=== PATIENT | female | born 1965 | race Caucasian/White ===

== ENCOUNTER 2021-01-04 10:12 | Emergency (ER) | payer BC ==
[~2021-01-04] VITALS: Ht 154.9 cm; Wt 80.9 kg
[2021-01-04 11:08] LABS: BASOPHILS # (AUTO) 0.1 X10'3 (0-0.2); BASOPHILS % (AUTO) 0.9 % (0-1); EOSINOPHILS # (AUTO) 0.2 X10'3 (0-0.9); EOSINOPHILS % (AUTO) 2.3 % (0-6); HEMATOCRIT 43.3 % (35.0-45.0); HEMOGLOBIN 14.3 g/dl (12.0-16.0); LYMPHOCYTES # (AUTO) 1.9 X10'3 (1.1-4.8); LYMPHOCYTES % (AUTO) 27.6 % (21-51); MEAN CORPUSCULAR HEMOGLOBIN 29.8 PG (27.0-31.0); MEAN CORPUSCULAR VOLUME 90.1 FL (78-98); MEAN PLATELET VOLUME 7.8 FL (7.4-10.4); MONOCYTES # (AUTO) 0.4 X10'3 (0-0.9); MONOCYTES % (AUTO) 5.7 % (2-12); NEUTROPHILS # (AUTO) 4.3 X10'3 (1.8-7.7); NEUTROPHILS % (AUTO) 63.5 % (42-75); PLATELET COUNT 309 X10'3 (140-440); RED CELL DISTRIBUTION WIDTH 13.8 % (11.5-14.5); WHITE BLOOD COUNT 6.7 X10'3 (4.5-11.0)
[2021-01-04 11:43] LABS: ALANINE AMINOTRANSFERASE 47 U/L (12-78); ALBUMIN 4.1 G/DL (3.4-5.0); ALBUMIN/GLOBULIN RATIO 1.1 (1.1-1.5); ALKALINE PHOSPHATASE 84 IU/L (46-116); ANION GAP 12 (8-16); ASPARTATE AMINO TRANSFERASE 23 U/L (10-37); BILIRUBIN,TOTAL 0.5 MG/DL (0.1-1.0); BLOOD UREA NITROGEN 16 MG/DL (7-18); BUN/CREATININE RATIO 20.8 (6.6-38.0); CALCIUM 9.3 MG/DL (8.5-10.1); CHLORIDE 105 MMOL/L (99-107); CREATININE 0.77 MG/DL (0.40-0.90); GLUCOSE 102 MG/DL (70-104); POTASSIUM 3.8 MMOL/L (3.5-5.1); SODIUM 142 MMOL/L (135-145); TOTAL CARBON DIOXIDE 25.1 MMOL/L (24-32); eGFR 78 ML/MIN
[2021-01-04] MEDS ORDERED: LIDOcaine 1% 30ml preserv. free vial SQ STA (12:23)
[2021-01-04] MEDS ORDERED: PANT20TA18 PO (14:00)
[2021-01-04] MEDS ORDERED: LIDOcaine 1% 30ml preserv. free vial ONE (14:00)
[2021-01-04 15:09] VITALS: BP 126/73
== END 2021-01-04 15:32 | disposition home or self-care (01) ==
LOC: ER 10:12
DX: R07.89 Other chest pain (principal); Z98.890 Other specified postprocedural states; Z79.899 Other long term (current) drug therapy
CPT/HCPCS: 20553; 36415; 71045; 80053; 84484; 85025; 93005; 99285; J2001